=== PATIENT | female | born 1985 | race Caucasian/White ===

== ENCOUNTER 2017-04-18 19:02 | Emergency (ER) | payer OTHER ==
[~2017-04-18] VITALS: Ht 157.5 cm; Wt 73.9 kg
[2017-04-18 22:17] LABS: CHLORIDE 103 mEq/L (99-109); POTASSIUM 3.7 mEq/L (3.7-5.4)
[2017-04-18 22:18] LABS: SODIUM 139 mEq/L (136-147)
[2017-04-18 22:19] LABS: GLUCOSE 100 mg/dL (70-99)
[2017-04-18 22:23] LABS: CREATININE 0.7 mg/dL (0.6-1.3); GFR ESTIMATE (CALCULATED) > 59 mL/min/
[2017-04-18 22:24] LABS: UREA NITROGEN (BUN) 7 mg/dL (9-23)
[2017-04-18] MEDS ORDERED: ZOFRAN4 MG PO (23:19)
[2017-04-18] MEDS ORDERED: CLEOCIN300 MG PO (23:19)
[2017-04-18 23:44] LABS: HEMATOCRIT 41.3 % (36.0-46.0); HEMOGLOBIN 13.9 G/DL (11.9-15.5); MCH 28.7 PG (29.0-34.0); MCHC 33.7 G/DL (30.0-36.0); MCV 85.3 FL (83-99); PLATELET COUNT 313 K/uL (156-360); RBC DIS.WIDTH-CV 12.2 % (11.8-14.6); RBC DIS.WIDTH-SD 37.9 % (39-53); RED BLOOD COUNT 4.84 M/uL (3.80-5.20); WHITE BLOOD COUNT 5.8 K/uL (4.1-10.2)
[2017-04-19 00:21] VITALS: BP 150/82
== END 2017-04-19 00:22 | disposition home or self-care (01) ==
LOC: EME 19:02
PROVIDERS: Emergency Medicine
DX: F11.10 Opioid abuse, uncomplicated (principal); E86.0 Dehydration; L03.119 Cellulitis of unspecified part of limb; F17.200 Nicotine dependence, unspecified, uncomplicated; Z87.442 Personal history of urinary calculi; Z88.0 Allergy status to penicillin
CPT/HCPCS: 80048; 85027; 87502; 99281; 99284